=== PATIENT | male | born 1955 | race African-American/Black ===

== ENCOUNTER → 2022-10-16 | Outpatient (CLI) | payer MEDICARE, MEDICAID ==
[~2022-10-16] MED LIST: AMI2 MT; ASPI-1497 MT; ATOR-2 MT; CLOP-31 MT; FURO-151 MT; ISOS30TA91 MT; NITR0.4T49 SL; PROT40 PO; TOPXL5 MT
== END | disposition home or self-care (01) ==
LOC: CARD 12:58
PROVIDERS: ATTEND Internal Medicine Interventional Cardiology
DX: D15.1 Benign neoplasm of heart (principal); I50.9 Heart failure, unspecified
CPT/HCPCS: 93306

== ENCOUNTER 2023-02-23 02:33 | Inpatient (IN) | payer MEDICARE, MEDICAID ==
[~2023-02-23] VITALS: Ht 165.1 cm; Wt 88.5 kg
[~2023-02-23 02:33] MED LIST changes: -AMI2 MT; -ISOS30TA91 MT; +ISOS60TA76 MT
[2023-02-23 03:13] LABS: EOSINOPHILS % 3.6 % (0.0-5.0); HEMATOCRIT. 34.1 % (42.0-52.0); HEMOGLOBIN. 12.1 g/dL (14.0-18.0); LYMPHOCYTES % 14.7 % (20.0-50.0); MEAN CORPUSCULAR VOLUME 92.7 fL (80.0-94.0); MEAN PLATELET VOLUME 7.8 fl (7.4-10.4); MONOCYTES % 13.2 % (2.0-8.0); NEUTROPHILS % 67.5 % (40.0-76.0); PLATELET 231 x1000/uL (130-400); RED BLOOD CELL COUNT 3.68 mill/uL (4.7-6.1); RED CELL DISTRIBUTION WIDTH 14.5 % (11.6-14.6)
[2023-02-23 03:26] LABS: CHLORIDE 106 mEq/L (98-107)
[2023-02-23 06:35] VITALS: BP 139/71; PULSE 83; RESP 18; TEMP 97.5
[2023-02-23] MEDS ORDERED: DOCUSATE SODIUM 100MG CAPSULE PO PRN (06:45)
[2023-02-23] MEDS ORDERED: DEXTROSE 50% WATER 50ML SYRINGE IV PRN (06:45)
[2023-02-23] MEDS ORDERED: MAGNESIUM/ALUMINUM HYDROXIDE/SIMETHICONE 30ML UDC PO PRN (06:45)
[2023-02-23] MEDS ORDERED: ONDANSETRON HCL 4MG/2ML INJ IV PRN (06:45)
[2023-02-23] MEDS ORDERED: CLONIDINE 0.1MG TABLET PO PRN (06:45)
[2023-02-23] MEDS ORDERED: IPRATROPIUM/ALBUTEROL 0.5-3(2.5)MG/3ML NEB HHN PRN (06:45)
[2023-02-23] MEDS ORDERED: GUAIFENESIN 200MG/10ML SUGAR FREE UDC PO PRN (06:45)
[2023-02-23] MEDS ORDERED: ACETAMINOPHEN 325MG TABLET PO PRN ×2 (06:45)
[2023-02-23] MEDS: BLOOD SUGAR DIAGNOSTIC STRIP TEST SCH ×4 (07:34→21:01)
[2023-02-23 07:55] VITALS: BP 135/70; PULSE 82; RESP 18; TEMP 98.1
[2023-02-23 08:00] VITALS: BP 135/70; PULSE 82; RESP 18; TEMP 98
[2023-02-23] MEDS: ENOXAPARIN 40MG/0.4ML SYR SUBCUT SCH (08:00)
[2023-02-23] MEDS ORDERED: NITROGLYCERIN 50MCG/ML 10ML VIAL (CATH LAB) IV ONE (08:00)
[2023-02-23] MEDS ORDERED: NICARDIPINE 100MCG/ML 10ML VIAL (CATH LAB) IV ONE (08:00)
[2023-02-23] MEDS ORDERED: NITROGLYCERIN OINT 1GM/INCH UDPKT TD SCH (08:45)
[2023-02-23] MEDS: INSULIN LISPRO 100 UNITS/ML SUBCUT SCH ×4 (08:49→21:01)
[2023-02-23] MEDS: ASPIRIN 81MG EC TABLET PO SCH (08:49)
[2023-02-23] MEDS: CLOPIDOGREL 75MG TABLET PO SCH (09:06)
[2023-02-23] MEDS: METOPROLOL SUCCINATE 50MG ER TABLET PO SCH (09:06)
[2023-02-23] MEDS: INSULIN GLARGINE 100 UNITS/ML SUBCUT SCH (10:30)
[2023-02-23 12:00] VITALS: BP 145/78; PULSE 74; RESP 18; TEMP 97.8
[2023-02-23] MEDS ORDERED: LIDOCAINE HCL/PF 1% 10 MG/ML 5ML VIAL ONE (14:33)
[2023-02-23] MEDS ORDERED: IODIXANOL 320MG/ML 100 ML BOTTLE IV ONE (14:33)
[2023-02-23] MEDS ORDERED: HEPARIN 1000 UNITS/ML 10ML ONE (14:33)
[2023-02-23] MEDS ORDERED: MIDAZOLAM HCL 2 MG/2 ML VIAL ONE (14:34)
[2023-02-23] MEDS ORDERED: FENTANYL CITRATE/PF 50MCG/ML 2ML VIAL ONE (14:34)
[2023-02-23] MEDS ORDERED: CLOPIDOGREL 75MG TABLET ONE (14:39)
[2023-02-23] MEDS ORDERED: VERAPAMIL HCL 2.5 MG/1 ML 2ML VIAL IV ONE (14:45)
[2023-02-23 15:12] LABS: CLARITY URINE CLEAR (CLEAR); COLOR URINE YELLOW (YELLOW); KETONES URINE NEGATIVE (NEGATIVE); LEUKOCYTE ESTERASE URINE NEGATIVE (NEGATIVE); NITRITE URINE NEGATIVE (NEGATIVE); OCCULT BLOOD URINE NEGATIVE (NEGATIVE); PH URINE 7.5 (4.5-8.0); PROTEIN URINE NEGATIVE (NEGATIVE); SPECIFIC GRAVITY URINE 1.021 (1.005-1.030); UROBILINOGEN URINE 0.2 E.U./dL (0.2-1.0)
[2023-02-23 15:45] LABS: *AMPHETAMINES SCREEN URINE NEGATIVE (NEGATIVE); *BARBITURATES SCREEN URINE NEGATIVE (NEGATIVE); *BENZODIAZEPINES SCREEN URINE NEGATIVE (NEGATIVE); *COCAINE SCREEN URINE NEGATIVE (NEGATIVE); CANNABINOID URINE SCREEN NEGATIVE (NEGATIVE); METHADONE URINE SCREEN NEGATIVE (NEGATIVE); OPIATES URINE SCREEN NEGATIVE (NEGATIVE); PHENCYCLIDINE URINE SCREEN NEGATIVE (NEGATIVE)
[2023-02-23] MEDS ORDERED: ATROPINE SULFATE 1MG/10ML SYR IV PRN (16:00)
[2023-02-23] MEDS: AMLODIPINE 2.5MG TABLET PO SCH (16:17)
[2023-02-23] MEDS: ISOSORBIDE MONONITRATE 60MG TABLET SR 24HR PO SCH (16:19)
[2023-02-23 20:00] VITALS: BP 119/49; PULSE 85; RESP 18; TEMP 97.9
[2023-02-23] MEDS ORDERED: ATORVASTATIN CALCIUM 40MG TABLET PO SCH ×2 (21:00)
[2023-02-23] MEDS ORDERED: FAMOTIDINE 20MG TABLET PO SCH (21:00)
[2023-02-24] VITALS: BP 130/69; PULSE 79; RESP 20; TEMP 97.7
[2023-02-24 04:00] VITALS: BP 139/88; PULSE 72; RESP 18; TEMP 98.2
[2023-02-24] MEDS: BLOOD SUGAR DIAGNOSTIC STRIP TEST SCH (06:18)
[2023-02-24] MEDS: INSULIN LISPRO 100 UNITS/ML SUBCUT SCH (06:19)
[2023-02-24 08:00] VITALS: BP 162/66; PULSE 81; RESP 18; TEMP 98.4
[2023-02-24 08:12] LABS: BASOPHILS % 0.4 % (0.0-2.0); EOSINOPHILS % 2.9 % (0.0-5.0); HEMATOCRIT. 34.9 % (42.0-52.0); HEMOGLOBIN. 12.1 g/dL (14.0-18.0); LYMPHOCYTES % 12.7 % (20.0-50.0); MEAN CORPUSCULAR HEMOGLOBIN 32.4 pg (28.0-32.0); MEAN CORPUSCULAR VOLUME 93.3 fL (80.0-94.0); MEAN PLATELET VOLUME 7.8 fl (7.4-10.4); MONOCYTES % 11.7 % (2.0-8.0); NEUTROPHILS % 72.3 % (40.0-76.0); PLATELET 215 x1000/uL (130-400); RED BLOOD CELL COUNT 3.74 mill/uL (4.7-6.1); RED CELL DISTRIBUTION WIDTH 13.8 % (11.6-14.6)
[2023-02-24 08:26] LABS: CHLORIDE 105 mEq/L (98-107)
[2023-02-24 08:48] LABS: HDL CHOLESTEROL 35 mg/dL (40-59); LDL CHOLESTEROL 97 mg/dL (5-100)
[2023-02-24] MEDS: ENOXAPARIN 40MG/0.4ML SYR SUBCUT SCH (08:53)
[2023-02-24] MEDS: CLOPIDOGREL 75MG TABLET PO SCH (08:53)
[2023-02-24] MEDS: ASPIRIN 81MG EC TABLET PO SCH (08:53)
[2023-02-24] MEDS: METOPROLOL SUCCINATE 50MG ER TABLET PO SCH (08:58)
[2023-02-24] MEDS: ISOSORBIDE MONONITRATE 60MG TABLET SR 24HR PO SCH (08:58)
[2023-02-24] MEDS: AMLODIPINE 2.5MG TABLET PO SCH (08:58)
[2023-02-24] MEDS: INSULIN GLARGINE 100 UNITS/ML SUBCUT SCH (09:02)
[2023-02-24] MEDS ORDERED: FAMO-135 MT (09:21)
[2023-02-24] MEDS ORDERED: AMLO2.5T2 MT (09:21)
[2023-02-24] MEDS ORDERED: ISOS60TA76 MT (09:21)
[2023-02-24] MEDS ORDERED: ATOR-2 MT (09:21)
[2023-02-24] MEDS ORDERED: CLOP-31 MT (09:21)
[2023-02-24 10:24] VITALS: BP 141/72; PULSE 75; TEMP 98; O2SAT 99
== END 2023-02-24 11:15 | disposition home or self-care (01) | DRG 287 ==
LOC: ER 02:33 → 8WST 05:31 → EDBEDREQTM 05:42 → EDBEDREQ 05:42 → ENRESERV 06:20
PROVIDERS: ADMIT Internal Medicine; ATTEND Internal Medicine
PROC: 4A023N7 Measurement of Cardiac Sampling and Pressure, Left Heart, Percutaneous Approach (ICD-10-PCS; principal; 2023-02-23)
PROC: B2111ZZ Fluoroscopy of Multiple Coronary Arteries using Low Osmolar Contrast (ICD-10-PCS; 2023-02-23)
DX: I25.110 Atherosclerotic heart disease of native coronary artery with unstable angina pectoris (principal); I50.32 Chronic diastolic (congestive) heart failure; J44.9 Chronic obstructive pulmonary disease, unspecified; G56.00 Carpal tunnel syndrome, unspecified upper limb; E78.5 Hyperlipidemia, unspecified; E11.9 Type 2 diabetes mellitus without complications; I11.0 Hypertensive heart disease with heart failure; Z95.5 Presence of coronary angioplasty implant and graft; Z79.899 Other long term (current) drug therapy; I25.2 Old myocardial infarction; Z85.46 Personal history of malignant neoplasm of prostate; Z85.118 Personal history of other malignant neoplasm of bronchus and lung; Z93.3 Colostomy status
CPT/HCPCS: 36415; 71045; 80048; 80053; 80061; 80305; 81003; 82962; 83036; 83880; 84443; 84484; 85025; 85347; 93005; 93306; 99285; J1644; J1650; J1815; J2250; J3010; J3490; Q9967

== ENCOUNTER → 2023-12-12 | Outpatient (CLI) | payer MEDICARE, MEDICAID ==
[~2023-12-12] MED LIST changes: +DAPA10TA PO; +FAMO-135 MT; -FURO-151 MT; +FURO-152 PO; -PROT40 PO; +REGADENOSON 0.4 MG/5 ML IV ONE
== END | disposition home or self-care (01) ==
LOC: NM 08:31
PROVIDERS: ATTEND Internal Medicine Interventional Cardiology
DX: I25.10 Atherosclerotic heart disease of native coronary artery without angina pectoris (principal); R06.09 Other forms of dyspnea
CPT/HCPCS: 78452; 93017; J2785; A9500